=== PATIENT | male | born 1955 | race Caucasian/White ===

== ENCOUNTER → 2024-02-04 09:38 | Outpatient (REF) | payer MEDICARE, SELFPAY | LOC: PAVMRI 09:38 | PROVIDERS: ATTENDING PHYSICIAN Family Medicine | DX: R41.81 Age-related cognitive decline (principal); R41.3 Other amnesia; Z82.0 Family history of epilepsy and other diseases of the nervous system | CPT/HCPCS: 70551 ==

== ENCOUNTER → 2024-08-18 08:16 | Outpatient (REF) | payer MEDICARE, SELFPAY | LOC: HWRAD 08:16 | PROVIDERS: ATTENDING PHYSICIAN Physician Assistant Medical | DX: I71.21 Aneurysm of the ascending aorta, without rupture (principal) | CPT/HCPCS: 71250 ==

== ENCOUNTER → 2024-12-22 08:43 | Outpatient (REF) | payer MEDICARE, SELFPAY | LOC: HWRAD 08:43 | PROVIDERS: ATTENDING PHYSICIAN Internal Medicine Cardiovascular Disease; FAMILY PHYSICIAN Family Medicine | DX: E11.9 Type 2 diabetes mellitus without complications (principal); I10 Essential (primary) hypertension; I77.9 Disorder of arteries and arterioles, unspecified; I77.810 Thoracic aortic ectasia | CPT/HCPCS: 76770 ==

== ENCOUNTER → 2025-01-04 10:10 | Outpatient (REF) | payer MEDICARE, SELFPAY | LOC: HWRCS 10:10 | PROVIDERS: ATTENDING PHYSICIAN Internal Medicine Cardiovascular Disease; FAMILY PHYSICIAN Family Medicine | DX: E11.9 Type 2 diabetes mellitus without complications (principal); I25.10 Atherosclerotic heart disease of native coronary artery without angina pectoris | CPT/HCPCS: 93306 ==